=== PATIENT | male | born 1955 | race Caucasian/White ===

== ENCOUNTER 2019-04-11 15:11 | Emergency (ER) | payer OTHER ==
[2019-04-11 16:35] LABS: ABS Eosinophils 0.1 10^3/ul (0-0.6); ABS Lymphocytes 1.2 10^3/ul (1.0-4.8); ABS Monocytes 0.7 10^3/ul (0-0.8); ABS Neutrophils 5.4 10^3/ul (1.5-7.7); Eosinophil % 1.5 %; Hematocrit 40 % (42-52); Hemoglobin 13.6 g/dL (14.0-18.0); Lymphocyte % 16.4 %; Mean Corpuscular HGB Conc 34 g/dL (31-36); Mean Corpuscular Hemoglobin 31 pg (27-31); Mean Corpuscular Volume 91 fL (80-94); Mean Platelet Volume 7.3 fL (7.4-10.4); Nucleated Red Blood Cells % 0.1; Platelet Count 248 10^3/uL (150-450); Red Blood Count 4.44 10^6 /uL (4.18-5.48); Red Cell Distribution Width 13 % (10-15); White Blood Count 7.5 10^3/uL (3.5-10.8)
[2019-04-11 16:45] LABS: Activated Partial Thrombo Time 28.8 seconds (26.0-38.0); INR 0.92 (0.82-1.09)
[2019-04-11 16:53] LABS: Albumin 4.3 g/dL (3.2-5.2); Albumin/Globulin Ratio 1.4 (1-3); BUN/Creatinine Ratio 13.2 (8-20); Calcium 9.3 mg/dL (8.6-10.3); EGFR African American 84.8 (>60); EGFR Non-African American 70.1 (>60); Potassium 4.1 mmol/L (3.5-5.0); Total Bilirubin 0.7 mg/dL (0.2-1.0); Total Protein 7.3 g/dL (6.4-8.9)
--- NOTE | 2019-04-11 20:35 | ED ---
GI/ HPI - HPI Summary HPI Summary: Pt is a 63 y/o M presenting to the ED with a chief complaint of issues. On 04/08/19, he had a radical prostatectomy d/t recent dx of prostate CA, and today, 08/20, when he was getting in the shower, he noticed the head of his penis was very edematous. He denies any penile pain, hematuria, or dysuria. He has a maria catheter. - History of Current Complaint Chief Complaint: EDUrogenitalProblems Stated Complaint: GROIN SWELLING SURGERY ON APRIL 08 Hx Obtained From: Patient Onset/Duration: Started Hours Ago, Still Present Timing: Constant, Lasting Hours Severity: Mild Current Severity: Mild Pain Intensity: 1 Location of Pain: Groin Additional Locations for Males: Penis Associated Signs and Symptoms: Negative: Hematuria, Dysuria Additional Signs & Symptoms: Positive: Penile Swelling Aggravating Factor(s): Nothing Alleviating Factor(s): Nothing - Allergy/Home Medications Allergies/Adverse Reactions: Allergies Allergy/AdvReac Type Severity Reaction Status Date / Time No Known Allergies Allergy Verified 02/28/15 17:35 PMH/Surg Hx/FS Hx/Imm Hx Previously Healthy: Yes Endocrine/Hematology History: Denies: Hx Diabetes, Hx Thyroid Disease Cardiovascular History: Denies: Hx Hypertension Respiratory History: Denies: Hx Asthma, Hx Chronic Obstructive Pulmonary Disease (COPD) GI History: Denies: Hx Ulcer History: Denies: Hx Renal Disease Musculoskeletal History: Reports: Hx Arthritis - previous R total hip replacement Denies: Hx Rheumatoid Arthritis, Hx Osteoporosis Sensory History: Reports: Hx Contacts or Glasses, Hx Hearing Problem - r ear doesnt hear much high freqeuncy Opthamlomology History: Reports: Hx Contacts or Glasses - Surgical History Surgery Procedure, Year, and Place: 09-12-06 Right hip replacement; [place] Hx Anesthesia Reactions: No Infectious Disease History: No Infectious Disease History: Denies: Hx Clostridium Difficile, Hx Hepatitis, Hx Human Immunodeficiency Virus (HIV), Hx of Known/Suspected MRSA, Hx Shingles, Hx Tuberculosis, Hx Known/ Suspected VRE, Hx Known/Suspected VRSA, History Other Infectious Disease, Traveled Outside the [place] in Last 30 Days - Family History Known Family History: Negative: Respiratory Disease - Social History Alcohol Use: Occasionally Alcohol Amount: 1 glass of wine Hx Substance Use: No Substance Use Type: Reports: None Hx Tobacco Use: No Smoking Status (MU): Never Smoked Tobacco Have You Smoked in the Last Year: No Review of Systems Negative: dysuria, hematuria, other - penile pain Positive: Edema - in penis All Other Systems Reviewed And Are Negative: Yes Physical Exam - Summary Physical Exam Summary: Constitutional: Well-developed, Well-nourished, Alert. (-) Distressed Skin: Warm, Dry HENT: Normocephalic; Atraumatic Eyes: Conjunctiva normal Neck: Musculoskeletal ROM normal neck. (-) JVD, (-) Stridor, (-) Tracheal deviation Cardio: Rhythm regular, rate normal, Heart sounds normal; Intact distal pulses; The pedal pulses are 2+ and symmetric. Radial pulses are 2+ and symmetric. Pulmonary/Chest wall: Effort normal. (-) Respiratory distress, (-) Wheezes, (-) Rales Abd: Ecchymosis over anterior abd wall diffusely. Laproscopic scars over the abd in the umbilicus, RLQ, and LLQ. Soft, (-) tenderness, (-) Distension, (-) Guarding, (-) Rebound Musculoskeletal: (-) Edema Neuro: Alert, Oriented x3 Psych: Mood and affect Normal : Edema of the head of the penis and distal shaft of the ventral aspect. Maria is appropriately placed. Erythema around the pubis. Triage Information Reviewed: Yes Vital Signs On Initial Exam: Initial Vitals Temp Pulse Resp BP Pulse Ox 98.4 F 96 18 161/78 98 04/11/19 15:20 04/11/19 15:20 04/11/19 15:20 04/11/19 15:20 04/11/19 15:20 Vital Signs Reviewed: Yes Diagnostics - Vital Signs Vital Signs Temp Pulse Resp BP Pulse Ox 04/11/19 17:15 99.1 F 89 18 121/79 98 04/11/19 15:20 98.4 F 96 18 161/78 98 - Laboratory Lab Results: Lab Results 04/11/19 04/11/19 04/11/19 Range/Units 16:20 16:20 16:21 WBC 7.5 (3.5-10.8) 10^3/uL RBC 4.44 (4.18-5.48) 10^6 /uL Hgb 13.6 L (14.0-18.0) g/dL Hct 40 L (42-52) % MCV 91 (80-94) fL MCH 31 (27-31) pg MCHC 34 (31-36) g/dL RDW 13 (10-15) % Plt Count 248 (150-450) 10^3/uL MPV 7.3 L (7.4-10.4) fL Neut % (Auto) 72.3 % Lymph % (Auto) 16.4 % Orange % (Auto) 9.4 % Eos % (Auto) 1.5 % Baso % (Auto) 0.4 % Absolute Neuts (auto) 5.4 (1.5-7.7) 10^3/ul Absolute Lymphs (auto) 1.2 (1.0-4.8) 10^3/ul Absolute Monos (auto) 0.7 (0-0.8) 10^3/ul Absolute Eos (auto) 0.1 (0-0.6) 10^3/ul Absolute Basos (auto) 0.0 (0-0.2) 10^3/ul Absolute Nucleated RBC 0.0 10^3/ul Nucleated RBC % 0.1 INR (Anticoag Therapy) 0.92 (0.82-1.09) APTT 28.8 (26.0-38.0) seconds Sodium 136 (135-145) mmol/L Potassium 4.1 (3.5-5.0) mmol/L Chloride 103 (101-111) mmol/L Carbon Dioxide 27 (22-32) mmol/L Anion Gap 6 (2-11) mmol/L BUN 14 (6-24) mg/dL Creatinine 1.06 (0.67-1.17) mg/dL Est GFR ( Amer) 84.8 (>60) Est GFR (Non-Af Amer) 70.1 (>60) BUN/Creatinine Ratio 13.2 (8-20) Glucose 123 H (70-100) mg/dL Lactic Acid (0.5-2.0) mmol/L Calcium 9.3 (8.6-10.3) mg/dL Total Bilirubin 0.70 (0.2-1.0) mg/dL AST 15 (13-39) U/L ALT 30 (7-52) U/L Alkaline Phosphatase 54 (34-104) U/L Troponin I 0.00 (<0.04) ng/mL Total Protein 7.3 (6.4-8.9) g/dL Albumin 4.3 (3.2-5.2) g/dL Globulin 3.0 (2-4) g/dL Albumin/Globulin Ratio 1.4 (1-3) 04/11/19 Range/Units 16:21 WBC (3.5-10.8) 10^3/uL RBC (4.18-5.48) 10^6 /uL Hgb (14.0-18.0) g/dL Hct (42-52) % MCV (80-94) fL MCH (27-31) pg MCHC (31-36) g/dL RDW (10-15) % Plt Count (150-450) 10^3/uL MPV (7.4-10.4) fL Neut % (Auto) % Lymph % (Auto) % Orange % (Auto) % Eos % (Auto) % Baso % (Auto) % Absolute Neuts (auto) (1.5-7.7) 10^3/ul Absolute Lymphs (auto) (1.0-4.8) 10^3/ul Absolute Monos (auto) (0-0.8) 10^3/ul Absolute Eos (auto) (0-0.6) 10^3/ul Absolute Basos (auto) (0-0.2) 10^3/ul Absolute Nucleated RBC 10^3/ul Nucleated RBC % INR (Anticoag Therapy) (0.82-1.09) APTT (26.0-38.0) seconds Sodium (135-145) mmol/L Potassium (3.5-5.0) mmol/L Chloride (101-111) mmol/L Carbon Dioxide (22-32) mmol/L Anion Gap (2-11) mmol/L BUN (6-24) mg/dL Creatinine (0.67-1.17) mg/dL Est GFR ( Amer) (>60) Est GFR (Non-Af Amer) (>60) BUN/Creatinine Ratio (8-20) Glucose (70-100) mg/dL Lactic Acid 1.0 (0.5-2.0) mmol/L Calcium (8.6-10.3) mg/dL Total Bilirubin (0.2-1.0) mg/dL AST (13-39) U/L ALT (7-52) U/L Alkaline Phosphatase (34-104) U/L Troponin I (<0.04) ng/mL Total Protein (6.4-8.9) g/dL Albumin (3.2-5.2) g/dL Globulin (2-4) g/dL Albumin/Globulin Ratio (1-3) Result Diagrams: 04/11/19 16:21 04/11/19 16:20 Lab Statement: Any lab studies that have been ordered have been reviewed, and results considered in the medical decision making process. GIGU Course/Dx - Course Course Of Treatment: Pt is a 63 y/o M presenting to the ED with a chief complaint of issues. On 04/08/19, he had a radical prostatectomy d/t recent dx of prostate CA, and today, 04/11/19, when he was getting in the shower, he noticed the head of his penis was very edematous. He denies any penile pain. He has a maria catheter. Pt's physical exam shows edema of the head of the penis and distal shaft of the ventral aspect. Maria is appropriately placed. Erythema around the pubis. It also shows ecchymosis over anterior abd wall diffusely. Laproscopic scars over the abd in the umbilicus, RLQ, and LLQ. Pts hematology shows Hgb of 13.6, Hct of 40, MPV of 7.3. Pt will be d/c'ed with dx of penile edema. He is stable and agreeable with this plan. - Diagnoses Provider Diagnoses: Penile edema Discharge - Sign-Out/Discharge Documenting (check all that apply): Patient Departure Patient Received Moderate/Deep Sedation with Procedure: No - Discharge Plan Condition: Good Disposition: HOME Patient Education Materials: Maria Catheter Placement and Care (ED) Referrals: Adrián Stephenson DO [Primary Care Provider] - - Billing Disposition and Condition Condition: GOOD Disposition: Home - Attestation Statements Document Initiated by Scribe: Yes Documenting Scribe: Radha Molina Provider For Whom Scribe is Documenting (Include Credential): Keo Timmons MD. Scribe Attestation: Radha Thomas, scribed for Keo Timmons MD. on 04/12/19 at 0619. Scribe Documentation Reviewed: Yes Provider Attestation: The documentation as recorded by the scribe, Radha Molina accurately reflects the service I personally performed and the decisions made by me, Keo Timmons MD. Status of Scribe Document: Viewed
[2019-04-11 21:47] VITALS: BP 166/93
== END 2019-04-11 21:10 | disposition home or self-care (01) ==
LOC: ED 15:11
DX: N48.89 Other specified disorders of penis (principal)
CPT/HCPCS: 36415; 80053; 83605; 84484; 85025; 85610; 85730; 87040; 99282